=== PATIENT | female | born 1995 | race Caucasian/White ===

== ENCOUNTER 2020-05-16 07:34 | Inpatient (IN) ==
[2020-05-16] MEDS ORDERED: OXYTOCIN 30 UNITS/500 ML BAG IV PRN ×3 (07:40→23:10)
[2020-05-16 08:21] LABS: Hematocrit (blood only) 38.4 % (37-47); Hemoglobin 13.4 g/dL (12.0-16.0); Mean Corpuscular Hemoglobin 32.4 pg (25-34); Mean Corpuscular Hgb Conc 34.9 g/dL (32-36); Mean Platelet Volume 10.5 fL (7.4-10.4); Platelet Count 292 K/uL (130-400); RDW Coefficient of Variation 13.5 % (11.5-14.5); RDW Standard Deviation 46.2 fL (36.4-46.3); Red Blood Count 4.13 M/uL (4.2-5.4); White Blood Count 12.27 K/uL (4.8-10.8)
[2020-05-16] MEDS: LACTATED RINGER'S 1,000 ML IV PRN ×3 (08:30→14:33)
--- NOTE | 2020-05-16 08:30 | History & Physical Report ---
Date of Service May 16, 2020 Assessment & Plan (1) Elevated blood pressure affecting in third trimester, antepartum: Admission and Anticipated Discharge Date Admission Date: May 16, 2020 Plan induction. pit now and arom as needed. epidural on demand. fetus category one. labs nl yesterday and blood pressures are good today. anticipate . History of Present Illness Chief Complaint: induction Primary Care Provider: MORGAN Olivo Patient is a with iup at 39 5/7 weeks who presents to labor and delivery for induction of labor for borderline blood pressures. Pressures have been creeping up over the last couple of weeks. Yesterday in the office she had persistent diastolics in the 90s. She notes she has just not felt well over the last couple of days. Notes no s/s of pet this am and labs were wnl yesterday. Had hung placed last night. +fm. not feeling contractions. labs--B-/ab-/ ri/rprnr/hepb-/hiv-/gtt x 2 nl/ gc/ct-/declined genetics/cf/sma/ gbs negative. Allergies Allergy/AdvReac Type Severity Reaction Status Date / Time No Known Allergies Allergy Verified 05/15/20 09:59 Home Medications Medication Instructions Recorded Confirmed Type prenat.vits,cornelio,avy-upff-lhqih 1 tab PO DAILY 05/16/20 05/16/20 History [ Vitamin] Patient History Medical History Acne Acute aspiration pneumonia Anxiety Constipation Personal history of cardiac murmur Varicella vaccination Surgical History History of myringotomy Hx of tonsillectomy [place] teeth extracted Family History Grandmother Ovarian cancer Cancer of uterus Alcohol abuse Aunt Ovarian cancer Cancer of uterus Father Alcohol abuse Denies family history of Prostate cancer Heart disease Myocardial infarction Breast cancer Colorectal cancer Social History Smoking Status: Never smoker Second Hand Exposure: No; Hx Alcohol Use: No Hx Substance Use: No Preferred Language: Marshallese Communication Ability: Effective 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 Beliefs That Will Affect Care: None marital status: marital status details: Elvin Gurrola (28) Current Living Situation: Spouse Current Living Situation Comment: alejandrina current occupational status: employed current occupation: [employer] Off [employer] @ [employer] Other Information That Helps Us Care for You: No Feels Safe at Home: Yes Safety Concerns: Feels Safe At This Time Dental Care, Regularly: No Physical Activity Frequency: Daily Seatbelt Use: always Sunscreen Use: Yes Assistive Devices: None OB History g1--present [employer] History no stds, no abnl paps Review of Systems All systems reviewed & are unremarkable except as noted in HPI & below Physical Exam Constitutional: WD/WN, vitals as above Gastrointestinal (Abdomen): soft, nt, gravid Psychiatric: A+Ox3, euthymic affect Genitourinary: hung removed with gentle tug cx--4/50/-2/soft/post toco--mics efm--150s wtih mod varibility, accels to 160s, no decels Results & Data ([facility]) Vital Signs (Past 12 Hours) Vital Signs Temp Pulse Resp BP 05/16/20 07:47 37.0 C 20 05/16/20 07:42 72 128/80 Coding Level of Care Code None Diagnoses Elevated blood pressure affecting in third trimester, antepartum O16.3
--- NOTE | 2020-05-16 11:16 | Labor Progress Brief Note ---
Date of Service May 16, 2020 Subjective notes some cramping, not very painful Assessment & Plan (1) Elevated blood pressure affecting in third trimester, antepartum: Admission and Anticipated Discharge Date Admission Date: May 16, 2020 continue current management. epidural on request. fetus category one. anticipate . Physical Exam Constitutional: WD/WN, vitals as above Psychiatric: A+Ox3, euthymic affect Genitourinary: cx--4.5/75/-2 arom--clear toco--q2-4min, pit at 9 efm--135 with mod variability, accels to 150s, no decels Results & Data ([place]) Vital Signs (Past 12 Hours) Vital Signs Temp Pulse Resp BP 05/16/20 10:50 36.8 C 20 05/16/20 10:49 65 120/74 05/16/20 09:50 67 119/74 05/16/20 08:43 77 123/78 05/16/20 07:47 37.0 C 20 05/16/20 07:42 72 128/80 Coding Level of Care Code None Diagnoses Elevated blood pressure affecting in third trimester, antepartum O16.3
[2020-05-16] MEDS ORDERED: ONDANSETRON INJ 2 MG/ML 2 ML VIAL IV PRN (12:16)
[2020-05-16] MEDS ORDERED: NALOXONE HCL 0.4 MG/1 ML VIAL/CARP IV PRN (12:16)
[2020-05-16] MEDS ORDERED: ePHEDrine sulfate 50 MG/ML AMP IV PRN (12:16)
[2020-05-16] MEDS ORDERED: NALOXONE HCL 1 MG in SODIUM CHLORIDE 0.9% 1000ML 1,000 ML IV PRN (12:16)
[2020-05-16] MEDS ORDERED: diphenhydrAMINE 50 MG/ML VIAL IV PRN (12:16)
[2020-05-16] MEDS ORDERED: fentaNYL 2MCG/ML ROPIVACAINE 1.25MG/ML 100 ML BAG EPI PRN (12:16)
[2020-05-16] MEDS ORDERED: PROMETHAZINE HCL 25 MG in SODIUM CHLORIDE 0.9% 50 ML IV PRN (12:16)
[2020-05-16] MEDS ORDERED: SODIUM CHLORIDE 0.9% INJ 10 ML VIAL ONE (12:18)
[2020-05-16] MEDS ORDERED: fentaNYL citrate 100 MCG/2 ML VIAL ONE (12:18)
[2020-05-16] MEDS ORDERED: BUPIVACAINE 0.25% 30 ML VIAL ONE (12:18)
[2020-05-16] MEDS ORDERED: ePHEDrine sulfate 50 MG/ML AMP ONE (12:18)
--- NOTE | 2020-05-16 12:18 | Anesthesiology Consultation ---
Date of Service May 16, 2020 Assessment & Plan ASA ASA3 Proposed Anesthesia Anesthesia Type: Labor Epidural Risk / Benefits Reviewed With: PT / POA / Parent / Guardian, Accepts Plan and Informed Consent Obtained History Height/Weight Height: 5 ft 3 in Weight: 81.193 kg Allergies Allergy/AdvReac Type Severity Reaction Status Date / Time No Known Allergies Allergy Verified 05/15/20 09:59 Medications Home Medications Medication Instructions Recorded Confirmed Last Taken prenat.vits,cornelio,mwi-zmag-ypbni 1 tab PO DAILY 05/16/20 05/16/20 05/16/20 06:30 [ Vitamin] Active Medications Generic Name Dose Route Start Last Admin Trade Name Freq PRN Reason Stop Dose Admin Lactated Ringer's 1,000 mls @ 125 mls/hr 05/16/20 07:40 05/16/20 12:43 Lr IV 05/18/20 07:39 125 mls/hr .Q8H PRN Administration L&D Protocol Protocol Oxytocin 30 units in 500 mls @ 11 mls/hr 05/16/20 07:40 05/16/20 12:50 Pitocin IV 05/18/20 07:39 0.78 units/hr .Q24H PRN 13 mls/hr Labor Induction/Augmentation Titration Protocol 0.66 UNITS/HR Past Medical History Medical History Acne Acute aspiration pneumonia Anxiety Constipation Personal history of cardiac murmur Varicella vaccination Exercise / Class Metabolic Activity II 4-5 Yardwork/Stairs/Walk up hill Past Family History Family History Grandmother Ovarian cancer Cancer of uterus Alcohol abuse Aunt Ovarian cancer Cancer of uterus Father Alcohol abuse Denies family history of Prostate cancer Heart disease Myocardial infarction Breast cancer Colorectal cancer Past Surgical History Surgical History History of myringotomy Hx of tonsillectomy [place] teeth extracted Past Anesthesia History No Hx of Anesthesia Complications and No Family Hx of Anesthesia Complications History of PONV No Hx of PONV and No Hx of Motion Sickness Social History Smoking Status: Never smoker Hx Alcohol Use: No Alcohol type: wine Hx Substance Use: No Review of Systems denies fever/cough/ colds/ chest pain/ SOB/ LUCY denies LUCY Physical Exam Vital Signs Last Vital Signs Temp 36.8 C 05/16/20 10:50 Pulse 76 05/16/20 12:51 Resp 20 05/16/20 10:50 BP 110/56 L 05/16/20 12:51 Pulse Ox 100 05/16/20 12:47 ENMT Mouth: no TMJ abnormality and no dentition abnormality Thyromental Distance: > or= 3.5 Finger Breadths Mallampati Class: II Neck neck extension not limited Respiratory normal respiratory effort; no respiratory distress Auscultation: lungs clear to auscultation bilaterally Cardiovascular Rate/Rhythm: regular rate and regular rhythm Neurologic moves all extremities Psychiatric Orientation: alert and oriented x 3 Testing Laboratory Results 05/16/20 07:53
[2020-05-16] MEDS ORDERED: fentaNYL 2MCG/ML ROPIVACAINE 1.25MG/ML 100 ML BAG EPI ONE (12:19)
--- NOTE | 2020-05-16 13:59 | Labor Progress Brief Note ---
Date of Service May 16, 2020 Subjective comfortable after epidural Assessment & Plan (1) Elevated blood pressure affecting in third trimester, antepartum: Admission and Anticipated Discharge Date Admission Date: May 16, 2020 Has recovered from prolonged decel and now looks more reassuring. Will hold on pitocin and see if these contractions, which palpate pretty firm, carry our labor. Monitor closely. Physical Exam Constitutional: WD/WN, vitals as above Psychiatric: A+Ox3, euthymic affect Genitourinary: cx--5+/100/-1 toco--q2-3min, pit at 13 efm--decel to 80s for about five minutes with return to baseline with d/c pit, position change, ivf bolus and oxygen now in 140s with mod variabiltiy, small accels Results & Data ([facility]) Vital Signs (Past 12 Hours) Vital Signs Temp Pulse Resp BP Pulse Ox 05/16/20 13:52 66 100 05/16/20 13:47 72 100 05/16/20 13:43 63 132/78 05/16/20 13:42 68 100 05/16/20 13:37 65 136/85 100 05/16/20 13:32 68 100 05/16/20 13:29 64 129/69 05/16/20 13:27 74 99 05/16/20 13:22 67 99 05/16/20 13:17 63 100 05/16/20 13:13 66 116/63 05/16/20 13:12 67 100 05/16/20 13:07 69 99 05/16/20 13:02 75 100 05/16/20 13:01 20 05/16/20 12:57 71 112/59 L 99 05/16/20 12:52 70 99 05/16/20 12:51 36.9 C 76 20 110/56 L 05/16/20 12:49 74 107/56 L 05/16/20 12:47 89 107/63 100 05/16/20 12:45 88 113/60 05/16/20 12:43 83 110/60 05/16/20 12:42 96 H 99 05/16/20 12:41 88 121/74 05/16/20 12:37 97 H 98 05/16/20 12:35 100 H 130/79 05/16/20 12:32 87 100 05/16/20 12:27 71 100 05/16/20 12:22 72 99 05/16/20 12:09 87 128/76 05/16/20 10:50 36.8 C 05/16/20 10:49 65 120/74 05/16/20 09:50 67 119/74 05/16/20 08:43 77 123/78 05/16/20 07:47 37.0 C 05/16/20 07:42 72 128/80 Coding Level of Care Code None Diagnoses Elevated blood pressure affecting in third trimester, antepartum O16.3
--- NOTE | 2020-05-16 16:08 | Labor Progress Brief Note ---
Date of Service May 16, 2020 Subjective comfortable Assessment & Plan (1) Elevated blood pressure affecting in third trimester, antepartum: Admission and Anticipated Discharge Date Admission Date: May 16, 2020 will closely monitor contractions for goal of >200mvus. fetus reassuring, category one. Anticipate . Physical Exam Constitutional: WD/WN, vitals as above Psychiatric: A+Ox3, euthymic affect Genitourinary: cx--6/100/-1, molding noted, edema to ant lip toco--difficult tracing , uterus feels very firm, iupc placed, pit at 3 efm--130s with mod variability, small accels, no decels, +scalp stim. Results & Data ([facility]) Vital Signs (Past 12 Hours) Vital Signs Temp Pulse Resp BP Pulse Ox 05/16/20 16:02 83 99 05/16/20 15:57 72 99 05/16/20 15:52 72 100 05/16/20 15:47 72 99 05/16/20 15:42 71 131/88 100 05/16/20 15:37 67 100 05/16/20 15:32 74 99 05/16/20 15:29 70 134/81 05/16/20 15:27 73 99 05/16/20 15:22 83 100 05/16/20 15:17 76 99 05/16/20 15:13 79 122/74 05/16/20 15:12 78 100 05/16/20 15:07 91 H 98 05/16/20 15:02 78 99 05/16/20 15:01 20 05/16/20 14:58 73 132/79 05/16/20 14:57 71 99 05/16/20 14:52 78 98 05/16/20 14:50 36.8 C 20 05/16/20 14:47 77 100 05/16/20 14:43 70 132/77 05/16/20 14:42 80 99 05/16/20 14:37 69 99 05/16/20 14:36 89 91 05/16/20 14:32 74 100 05/16/20 14:31 20 05/16/20 14:27 72 127/79 100 05/16/20 14:22 68 100 05/16/20 14:17 67 100 05/16/20 14:16 20 05/16/20 14:13 81 124/81 05/16/20 14:12 75 100 05/16/20 14:07 69 100 05/16/20 14:02 68 100 05/16/20 14:01 20 05/16/20 13:59 64 130/77 05/16/20 13:57 68 100 05/16/20 13:52 66 100 05/16/20 13:47 72 100 05/16/20 13:46 20 05/16/20 13:43 63 132/78 05/16/20 13:42 68 100 05/16/20 13:37 65 136/85 100 05/16/20 13:32 68 100 05/16/20 13:29 64 129/69 05/16/20 13:27 74 99 05/16/20 13:22 67 99 05/16/20 13:17 63 100 05/16/20 13:13 66 116/63 05/16/20 13:12 67 100 05/16/20 13:07 69 99 05/16/20 13:02 75 100 05/16/20 13:01 20 05/16/20 12:57 71 112/59 L 99 05/16/20 12:52 70 99 05/16/20 12:51 36.9 C 76 20 110/56 L 05/16/20 12:49 74 107/56 L 05/16/20 12:47 89 107/63 100 05/16/20 12:45 88 113/60 05/16/20 12:43 83 110/60 05/16/20 12:42 96 H 99 05/16/20 12:41 88 121/74 05/16/20 12:37 97 H 98 05/16/20 12:35 100 H 130/79 05/16/20 12:32 87 100 05/16/20 12:27 71 100 05/16/20 12:22 72 99 05/16/20 12:09 87 128/76 05/16/20 10:50 36.8 C 20 05/16/20 10:49 65 120/74 05/16/20 09:50 67 119/74 05/16/20 08:43 77 123/78 05/16/20 07:47 37.0 C 20 05/16/20 07:42 72 128/80 Coding Level of Care Code None Diagnoses Elevated blood pressure affecting in third trimester, antepartum O16.3
--- NOTE | 2020-05-16 17:57 | Labor Progress Brief Note ---
Date of Service May 16, 2020 Subjective comfortable Assessment & Plan (1) Elevated blood pressure affecting in third trimester, antepartum: Admission and Anticipated Discharge Date Admission Date: May 16, 2020 continue current management. laboring nicely without pitocin, fetus reassuring. anticipate . Physical Exam Constitutional: WD/WN, vitals as above Psychiatric: A+Ox3, euthymic affect Genitourinary: cx--9/100/0, still some edema to ant lip toco--q2min, pit off, MVUs>200 efm--130s with mod variability, small accels , no decels Results & Data ([facility]) Vital Signs (Past 12 Hours) Vital Signs Temp Pulse Resp BP Pulse Ox 05/16/20 17:52 90 99 05/16/20 17:47 91 H 100 05/16/20 17:43 78 130/77 05/16/20 17:42 79 99 05/16/20 17:37 75 99 05/16/20 17:32 75 99 05/16/20 17:31 20 05/16/20 17:29 70 126/77 05/16/20 17:27 78 98 05/16/20 17:22 78 99 05/16/20 17:17 72 99 05/16/20 17:12 73 122/78 99 05/16/20 17:07 72 99 05/16/20 17:02 70 99 05/16/20 17:01 20 05/16/20 16:59 70 128/79 05/16/20 16:57 70 99 05/16/20 16:52 73 99 05/16/20 16:47 69 100 05/16/20 16:46 20 05/16/20 16:45 68 123/66 05/16/20 16:42 70 99 05/16/20 16:37 71 99 05/16/20 16:32 71 100 05/16/20 16:29 68 130/82 05/16/20 16:27 72 99 05/16/20 16:22 70 99 05/16/20 16:17 67 99 05/16/20 16:16 20 05/16/20 16:14 66 131/82 05/16/20 16:12 67 99 05/16/20 16:07 69 99 05/16/20 16:06 68 129/84 11/19/20 16:02 83 99 20 15:57 72 99 05/16/20 15:52 72 100 05/16/20 15:47 72 99 20 15:42 71 131/88 100 05/16/20 15:37 67 100 05/16/20 15:32 74 99 20 15:29 70 134/81 05/16/20 15:27 73 99 20 15:22 83 100 20 15:17 76 99 20 15:13 79 122/74 20 15:12 78 100 20 15:07 91 H 98 20 15:02 78 99 20 15:01 20 05/16/20 14:58 73 132/79 20 14:57 71 99 20 14:52 78 98 20 14:50 36.8 C 20 05/16/20 14:47 77 100 20 14:43 70 132/77 20 14:42 80 99 20 14:37 69 99 20 14:36 89 91 05/16/20 14:32 74 100 20 14:31 20 20 14:27 72 127/79 100 20 14:22 68 100 05/16/20 14:17 67 100 20 14:16 20 20 14:13 81 124/81 20 14:12 75 100 20 14:07 69 100 20 14:02 68 100 05/16/20 14:01 20 20 13:59 64 130/77 19/20 13:57 68 100 19/20 13:52 66 100 19/20 13:47 72 100 05/16/20 13:46 20 20 13:43 63 132/78 20 13:42 68 100 19/20 13:37 65 136/85 100 19/20 13:32 68 100 19/20 13:29 64 129/69 19/20 13:27 74 99 1920 13:22 67 99 05/16/20 13:17 63 100 05/16/20 13:13 66 116/63 05/16/20 13:12 67 100 05/16/20 13:07 69 99 05/16/20 13:02 75 100 05/16/20 13:01 20 05/16/20 12:57 71 112/59 L 99 05/16/20 12:52 70 99 05/16/20 12:51 36.9 C 76 20 110/56 L 05/16/20 12:49 74 107/56 L 05/16/20 12:47 89 107/63 100 05/16/20 12:45 88 113/60 05/16/20 12:43 83 110/60 05/16/20 12:42 96 H 99 05/16/20 12:41 88 121/74 05/16/20 12:37 97 H 98 05/16/20 12:35 100 H 130/79 05/16/20 12:32 87 100 05/16/20 12:27 71 100 05/16/20 12:22 72 99 05/16/20 12:09 87 128/76 05/16/20 10:50 36.8 C 20 05/16/20 10:49 65 120/74 05/16/20 09:50 67 119/74 05/16/20 08:43 77 123/78 05/16/20 07:47 37.0 C 20 05/16/20 07:42 72 128/80 Coding Level of Care Code None Diagnoses Elevated blood pressure affecting in third trimester, antepartum O16.3
[2020-05-16] MEDS ORDERED: oxyCODONE/ACETAMINOPHEN 5mg/325mg TAB PO PRN (20:41)
[2020-05-16] MEDS ORDERED: ACETAMINOPHEN 325 MG TAB PO PRN (20:41)
--- NOTE | 2020-05-16 20:45 | Delivery Summary ---
Vaginal Delivery Summary Date of Service May 16, 2020 Vaginal Delivery Summary Pre-operative Diagnosis: at 39 + weeks elevated blood pressures in the third trimester Post-operative Diagnosis: same Procedure: hung bulb pitocin induction arom epidural iupc second degree laceration and repair EBL: 300cc Anesthesia: epidural Procedure: The patient pushed for about 20 minutes to deliver a viable male in keila position. Nuchal cord x 1 reduced easily. The nose and mouth were bulb suctioned on the perineum and the rest of the infant was then delivered without difficulty. The baby was floopy. The infant was placed in the maternal abdomen for drying and attention. Cord was clamped and cut and the was taken to the warmer for further attention Cord blood and segment obtained. Placenta delivered spontaneous, intact with a three vessel cord. Cervix/sulci/rectum were intact. A second degree perineal laceration was repaired in the normal standard fashion. Hemostasis obtained with dilute pitocin and fundal massage. Apgars were 7/9. Mother and baby doing well at the end of the delivery.
--- NOTE | 2020-05-16 21:24 | Anesthesiology Progress Note ---
Date of Service May 16, 2020 Anesthesia Post Procedure Vital Signs Vital Signs: Temp Pulse Resp BP Pulse Ox 05/16/20 21:11 128/68 19/20 20:56 96 H 18 133/72 19/20 20:41 95 H 18 135/67 19/20 20:28 104 H 135/68 19/20 20:27 99 H 96 19/20 20:22 91 H 96 1920 20:17 110 H 97 19/20 20:13 111 H 142/70 H 19/20 20:12 141 H 95 19/20 20:07 97 H 97 1920 20:02 100 H 96 1920 19:59 94 H 147/86 H 19/20 19:57 85 98 19/20 19:52 80 97 19/20 19:47 88 97 19/20 19:43 81 134/85 19/20 19:42 81 97 1920 19:37 96 H 96 1920 19:32 92 H 97 19/20 19:28 99 H 138/85 19/20 19:27 93 H 97 19/20 19:22 95 H 98 19/20 19:17 82 98 1920 19:14 37.0 C 81 18 132/80 19/20 19:12 89 99 19/20 19:07 92 H 100 19/20 19:02 82 100 19/20 19:01 20 20 18:58 78 129/82 19/20 18:57 86 99 19/20 18:52 84 98 19/20 18:47 93 H 98 19/20 18:45 20 19/20 18:43 80 131/82 19/20 18:42 85 98 19/20 18:37 84 98 19/20 18:32 84 99 19/20 18:31 37.2 C 20 1920 18:28 85 127/82 19/20 18:27 86 99 19/20 18:22 104 H 98 19/20 18:17 93 H 100 1920 18:13 124/73 11/19/20 18:12 117 H 100 19/20 18:07 104 H 99 19/20 18:02 111 H 100 19/20 17:58 82 127/75 19/20 17:57 91 H 98 19/20 17:52 90 99 19/20 17:47 91 H 100 19/20 17:43 78 130/77 19/20 17:42 79 99 19/20 17:37 75 99 19/20 17:32 75 99 19/20 17:31 20 05/16/20 17:29 70 126/77 19/20 17:27 78 98 19/20 17:22 78 99 05/16/20 17:17 72 99 20 17:12 73 122/78 99 19/20 17:07 72 99 19/20 17:02 70 99 05/16/20 17:01 20 20 16:59 70 128/79 20 16:57 70 99 19/20 16:52 73 99 19/20 16:47 69 100 19/20 16:46 20 05/16/20 16:45 68 123/66 19/20 16:42 70 99 19/20 16:37 71 99 19/20 16:32 71 100 19/20 16:29 68 130/82 19/20 16:27 72 99 19/20 16:22 70 99 19/20 16:17 67 99 05/16/20 16:16 20 20 16:14 66 131/82 19/20 16:12 67 99 19/20 16:07 69 99 19/20 16:06 68 129/84 19/20 16:02 83 99 19/20 15:57 72 99 19/20 15:52 72 100 19/20 15:47 72 99 19/20 15:42 71 131/88 100 19/20 15:37 67 100 19/20 15:32 74 99 19/20 15:29 70 134/81 19/20 15:27 73 99 11/19/20 15:22 83 100 05/16/20 15:17 76 99 05/16/20 15:13 79 122/74 05/16/20 15:12 78 100 05/16/20 15:07 91 H 98 05/16/20 15:02 78 99 05/16/20 15:01 20 05/16/20 14:58 73 132/79 05/16/20 14:57 71 99 05/16/20 14:52 78 98 05/16/20 14:50 36.8 C 20 05/16/20 14:47 77 100 05/16/20 14:43 70 132/77 05/16/20 14:42 80 99 05/16/20 14:37 69 99 05/16/20 14:36 89 91 05/16/20 14:32 74 100 05/16/20 14:31 20 05/16/20 14:27 72 127/79 100 05/16/20 14:22 68 100 05/16/20 14:17 67 100 05/16/20 14:16 20 05/16/20 14:13 81 124/81 05/16/20 14:12 75 100 05/16/20 14:07 69 100 05/16/20 14:02 68 100 05/16/20 14:01 20 05/16/20 13:59 64 130/77 05/16/20 13:57 68 100 05/16/20 13:52 66 100 05/16/20 13:47 72 100 05/16/20 13:46 20 05/16/20 13:43 63 132/78 05/16/20 13:42 68 100 05/16/20 13:37 65 136/85 100 05/16/20 13:32 68 100 05/16/20 13:29 64 129/69 05/16/20 13:27 74 99 05/16/20 13:22 67 99 05/16/20 13:17 63 100 05/16/20 13:13 66 116/63 05/16/20 13:12 67 100 05/16/20 13:07 69 99 05/16/20 13:02 75 100 05/16/20 13:01 20 05/16/20 12:57 71 112/59 L 99 05/16/20 12:52 70 99 05/16/20 12:51 36.9 C 76 20 110/56 L 05/16/20 12:49 74 107/56 L 05/16/20 12:47 89 107/63 100 05/16/20 12:45 88 113/60 05/16/20 12:43 83 110/60 05/16/20 12:42 96 H 99 05/16/20 12:41 88 121/74 05/16/20 12:37 97 H 98 05/16/20 12:35 100 H 130/79 05/16/20 12:32 87 100 05/16/20 12:27 71 100 05/16/20 12:22 72 99 05/16/20 12:09 87 128/76 05/16/20 10:50 36.8 C 20 05/16/20 10:49 65 120/74 05/16/20 09:50 67 119/74 05/16/20 08:43 77 123/78 05/16/20 07:47 37.0 C 20 05/16/20 07:42 72 128/80 Pain Intensity Lower Abdomen: Pain Intensity: 6 Transfer of Care Handoff Completed per policy Notes Mental Status: alert / awake / arousable and participated in evaluation Patient Amnestic to Procedure: Yes Nausea / Vomiting: adequately controlled Pain: adequately controlled Airway Patency, RR, SpO2: stable & adequate BP & HR: stable & adequate Hydration State: stable & adequate Anesthetic Complications: no major complications apparent and Pt Satisfied with anesthetic care
[2020-05-16] MEDS ORDERED: BENZOCAINE 20% AER SPR 82.5 GM CAN EXT ONE (21:52)
[2020-05-16] MEDS: IBUPROFEN 600 MG TAB PO PRN (21:53)
[2020-05-16] MEDS ORDERED: DIPHTHERIA/TETANUS/PERTUSSIS 0.5 ML SYR/VIAL IM ONE (23:10)
[2020-05-16] MEDS ORDERED: bisacodyL 10 MG SUPP PR PRN (23:10)
[2020-05-16] MEDS ORDERED: SUPERCREAM 0.870% 15 GM JAR EXT PRN (23:10)
[2020-05-16] MEDS ORDERED: BENZOCAINE 20% AER SPR 82.5 GM CAN EXT PRN (23:10)
[2020-05-16] MEDS ORDERED: HYDROCORTISONE ACETATE 25 MG SUPP PR PRN (23:10)
[2020-05-16] MEDS: DOCUSATE SODIUM 100 MG CAP PO SCH (23:25)
--- NOTE | 2020-05-17 05:21 | Obstetrical Progress Note ---
Date of Service <Tulio Rolle MD - Last Filed: 05/17/20 06:20> May 17, 2020 Assessment & Plan <Tulio Rolle MD - Last Filed: 05/17/20 06:20> (1) Spontaneous vaginal delivery: Jaye is a 25 y/o female who is now PPD #1 following IOL in setting of elevated BPs, with subsequent at 39-5/7 weeks. - Feels well today. Eating well, voiding well, ambulating well - BPs stable in the 120/70s overnight, no LARES/changes in vision/CP/SOB/abdominal pain. - Pain well controlled with ibuprofen 600mg Q4H PRN. - Routine PPD care -- OOB, ambulation throughout today - After discharge will have [address] Pfeiffer Day #:: 1 Subjective <Tulio Rolle MD - Last Filed: 05/17/20 06:20> Jaye is a 25 y/o female who is now PPD #1 following IOL in setting of elevated BPs, with subsequent at 39-5/7 weeks. Reports feeling well overall this morning. Some abdominal cramping & pain well managed on analgesics. Voiding without difficulty. Tolerating meals well and able to ambulate some. Some persistent lochia with some improvement this morning. Breast feeding without difficulty. Review of Systems Denies fever, chills, sweats Denies shortness of breath, difficulty breathing, chest pain, palpitations, chest pressure. Denies breast pain. Denies dysuria. Denies headache or changes in vision. Physical Exam <Tulio Rolle MD - Last Filed: 05/17/20 06:20> General: Alert, oriented. No acute distress. Cardiac: Regular rate and rhythm, no murmurs/rubs/gallops. Respiratory: Clear to auscultation bilaterally a/p, no wheezes/rales/rhonchi. No increased work of breathing. Symmetrical chest rise. No respiratory distress. Abdomen: Soft, nontender, nondistended. Bowel sounds present. Uterus: Uterine fundus firm, palpable 1 cm below umbilicus. Lower Extremities: No lower extremity edema or swelling. No deep calf pain. Patrick's negative bilaterally. Results & Data ([facility]) <Tulio Rolle MD - Last Filed: 05/17/20 06:20> Vital Signs (Past 12 Hours) Vital Signs Temp Pulse Pulse Resp BP BP Pulse Ox 05/17/20 03:15 36.7 C 75 18 127/68 97 05/16/20 23:15 36.9 C 78 18 128/77 98 20 22:41 99 H 18 128/77 20 22:26 92 H 122/67 05/16/20 22:11 99 H 18 124/72 20 21:56 95 H 131/71 20 21:42 100 H 131/68 05/16/20 21:41 18 05/16/20 21:26 99 H 18 141/86 H 20 21:11 18 128/68 20 20:56 96 H 18 133/72 20 20:41 95 H 18 135/67 20 20:28 104 H 135/68 05/16/20 20:27 99 H 96 05/16/20 20:22 91 H 96 20 20:17 110 H 97 20 20:13 111 H 142/70 H 20 20:12 141 H 95 1920 20:07 97 H 97 20 20:02 100 H 96 20 19:59 94 H 147/86 H 20 19:57 85 98 20 19:52 80 97 20 19:47 88 97 1920 19:43 81 134/85 20 19:42 81 97 20 19:37 96 H 96 1920 19:32 92 H 97 1920 19:28 99 H 138/85 20 19:27 93 H 97 1920 19:22 95 H 98 19/20 19:17 82 98 19/20 19:14 37.0 C 81 18 132/80 19/20 19:12 89 99 19/20 19:07 92 H 100 19/20 19:02 82 100 19/20 19:01 20 20 18:58 78 129/82 20 18:57 86 99 05/16/20 18:52 84 98 05/16/20 18:47 93 H 98 05/16/20 18:45 20 05/16/20 18:43 80 131/82 05/16/20 18:42 85 98 05/16/20 18:37 84 98 05/16/20 18:32 84 99 05/16/20 18:31 37.2 C 20 05/16/20 18:28 85 127/82 05/16/20 18:27 86 99 05/16/20 18:22 104 H 98 05/16/20 18:17 93 H 100 05/16/20 18:13 124/73 05/16/20 18:12 117 H 100 05/16/20 18:07 104 H 99 05/16/20 18:02 111 H 100 05/16/20 17:58 82 127/75 05/16/20 17:57 91 H 98 05/16/20 17:52 90 99 05/16/20 17:47 91 H 100 05/16/20 17:43 78 130/77 05/16/20 17:42 79 99 05/16/20 17:37 75 99 05/16/20 17:32 75 99 05/16/20 17:31 20 05/16/20 17:29 70 126/77 05/16/20 17:27 78 98 05/16/20 17:22 78 99 <Jagruti Pfeiffer MD, FACOG - Last Filed: 05/17/20 07:32> Co-Signing Physician Notes Resident Physician Supervision Note: I interviewed and examined the patient. Discussed with Dr. Rolle and agree with findings and plan as documented in the note. Any exceptions or clarifications are listed here: Doing well. Routine care, ppd1. Documented By: Jagruti Pfeiffer MD, FACOG Resident Activity Tracking <Tulio Rolle MD - Last Filed: 05/17/20 06:20> Resident Involvement: Resident Care Provided Care Provided: Adult Hospital Medicine and OB Delivery
[2020-05-17 06:43] LABS: Hematocrit (blood only) 35.3 % (37-47); Hemoglobin 12.3 g/dL (12.0-16.0)
[2020-05-17] MEDS: DOCUSATE SODIUM 100 MG CAP PO SCH ×2 (09:35→20:17)
[2020-05-17] MEDS: PRENATAL VITAMIN 1 TAB PO SCH (09:35)
[2020-05-17] MEDS: IBUPROFEN 600 MG TAB PO PRN (16:18)
[2020-05-17] MEDS ORDERED: bisacodyL 5 MG TABEC PO SCH (20:00)
[2020-05-18] MEDS: IBUPROFEN 600 MG TAB PO PRN (05:33)
--- NOTE | 2020-05-18 05:43 | Obstetrical Progress Note ---
Date of Service <Tulio Rolle MD - Last Filed: 05/18/20 06:46> May 18, 2020 Assessment & Plan <Tulio Rolle MD - Last Filed: 05/18/20 06:46> (1) Spontaneous vaginal delivery: Jaye is a 25 y/o female who is now PPD #2 following IOL in setting of elevated BPs, with subsequent at 39-5/7 weeks. - Feels well today. Eating well, voiding well, ambulating well - BPs stable in the 120-130/70s overnight, no LARES/changes in vision/CP/SOB/abdominal pain. - Pain well controlled with ibuprofen 600mg Q4H PRN. - Routine PPD care -- OOB, ambulation throughout today - Anticipate d/c today; will need 1 week f/u in office for BP check given borderline BPs that required IOL - After discharge will have [address] Margarette Dan <Tulio Rolle MD - Last Filed: 05/18/20 06:46> Jaye is a 25 y/o female who is now PPD #2 following IOL in setting of elevated BPs, with subsequent at 39-5/7 weeks. Reports feeling well overall this morning. Endorses minimal abdominal cramping pain well managed on analgesics. Voiding without difficulty. Tolerating meals well and able to ambulate some. Endorses passing gas. Some persistent lochia with some improvement this morning. Breast feeding without difficulty. BPs nicely stable overnight ~120/70. Review of Systems Denies fever, chills, sweats Denies shortness of breath, difficulty breathing, chest pain, palpitations, chest pressure. Denies breast pain. Denies dysuria. Denies headache or changes in vision. Physical Exam <Tulio Rolle MD - Last Filed: 05/18/20 06:46> General: Alert, oriented. No acute distress. Cardiac: Regular rate and rhythm, no murmurs/rubs/gallops. Respiratory: Clear to auscultation bilaterally a/p, no wheezes/rales/rhonchi. No increased work of breathing. Symmetrical chest rise. No respiratory distress. Abdomen: Soft, nontender, nondistended. Bowel sounds present. Uterus: Uterine fundus firm, palpable 2 cm below umbilicus. Lower Extremities: No lower extremity edema or swelling. No deep calf pain. Patrick's negative bilaterally. Results & Data ([facility]) <Tulio Rolle MD - Last Filed: 05/18/20 06:46> Vital Signs (Past 12 Hours) Vital Signs Temp Pulse Resp BP Pulse Ox 05/17/20 23:30 36.5 C 68 16 119/79 97 05/17/20 20:00 36.4 C L 77 17 137/86 97 <Evangelina Blake MD - Last Filed: 05/18/20 07:20> Co-Signing Physician Notes Resident Physician Supervision Note: I interviewed and examined the patient. Discussed with Dr. Rolle and agree with findings and plan as documented in the note. Any exceptions or clarifications are listed here: PPD2, doing well and meeting all milestones. s/p rhogam. DC home today, BP check requested, s/s pre-eclampsia reviewed Documented By: Evangelina Blake MD Resident Activity Tracking <Tulio Rolle MD - Last Filed: 05/18/20 06:46> Resident Involvement: Resident Care Provided Care Provided: Adult Hospital Medicine and OB Delivery
[2020-05-18] MEDS: PRENATAL VITAMIN 1 TAB PO SCH (08:12)
[2020-05-18] MEDS: DOCUSATE SODIUM 100 MG CAP PO SCH (08:13)
== END 2020-05-18 12:10 | disposition home or self-care (01) | DRG 807 ==
LOC: 4S1 07:34 → 4S2 23:00